=== PATIENT | male | born 1995 | race Caucasian/White ===

== ENCOUNTER 2018-03-01 10:10 | Emergency (ER) | payer OTHER ==
--- NOTE | 2018-03-01 10:20 | EDPHY ---
H & P Stated Complaint: visiting from [place] since here/sats 90% n/v Time Seen by Provider: 03/01/18 10:19 - Personal History Current Tetanus Diphtheria and Acellular Pertussis (TDAP): Yes - Medical/Surgical History Hx Asthma: No Hx Chronic Respiratory Disease: No Hx Diabetes: No Hx Cardiac Disease: No Hx Renal Disease: No Hx Cirrhosis: No Hx Alcoholism: No Hx HIV/AIDS: No Hx Splenectomy or Spleen Trauma: No Other PMH: denies - Social History Smoking Status: Current every day smoker Constitutional: Initial Vital Signs Temperature (C) 36.8 C 03/01/18 10:12 Heart Rate 115 H 03/01/18 10:12 Respiratory Rate 18 03/01/18 10:12 Blood Pressure 150/96 H 03/01/18 10:12 O2 Sat (%) 90 L 03/01/18 10:12 O2 Delivery Mode Room Air O2 (L/minute) 4 Allergies/Adverse Reactions: No Known Allergies Allergy (Unverified 03/01/18 10:11) Home Medications: Medication Instructions Recorded Ibuprofen 03/01/18 Medical Decision Making ED Course/Re-evaluation: CHIEF COMPLAINT: Headache, nausea, vomiting HISTORY OF PRESENT ILLNESS: This patient is a 22 year old male who presents with migraine, nausea, and vomiting. He is currently visiting from [place]. He arrived in [place] on Wednesday , and his headache began then. He then developed associated nausea. Today, he has been unable to keep food or water down. He endorses history of migraines, but has not had one in some time. He denies eating any unusual foods, drinking from unusual water sources, or exposure to ill contacts with similar symptoms. No fever, chest pain, shortness of breath, diarrhea, urinary complaints, or other associated symptoms. REVIEW OF SYSTEMS: A comprehensive 10 system review of systems is otherwise negative aside from elements mentioned in the history of present illness and medical decision making. PHYSICAL EXAM: HR, BP, O2 Sat, RR. Temp noted General Appearance: Alert, well hydrated, appropriate, and non-toxic appearing. Head: Atraumatic without scalp tenderness or obvious injury Eyes: Pupils equal, round, reactive to light and accommodation, EOMI, no trauma , no injection. Ears: Clear bilaterally, no perforation, normal landmarks Nose: Atraumatic, no rhinorrhea, clear. Throat: There is no erythema or exudates, no lesions, normal tonsils, mucus membranes moist. Neck: Supple, 2+ carotid upstroke, nontender, no lymphadenopathy. Respiratory: No retractions, no distress, no wheezes, and no accessory muscle use. Lungs are clear to auscultation bilaterally. Cardiovascular: Regular rate and rhythm, no murmurs, rubs, or gallops. Bilateral carotid, radial, dorsalis pedis, and posterior tibial pulses intact. Good capillary refill all extremities. Gastrointestinal: Abdomen is soft, nontender, non-distended, no masses, no rebound, no guarding, no peritoneal signs. Musculoskeletal: Normal active ROM of all extremities, atraumatic. Neurological: Alert, appropriate, and interactive. The patient has normal DTRs and non-focal cranial nerves, motor, sensory, and cerebellar exam. Skin: No rashes, good turgor, no nodules on palpation. Past medical history: Denies. Past surgical history: Noncontributory Family history: Noncontributory Social history: Visiting from [place]. Single. Employed. Does not abuse tobacco, drugs, or alcohol. DIFFERENTIAL DIAGNOSIS: The differential diagnosis for the patient's headache included but was not limited to altitude sickness, subarachnoid hemorrhage, migraine headache, tension headache and infectious causes such as meningitis, pharyngitis and sinusitis. MEDICAL DECISION MAKIN22 year old male presents with headache, nausea, and vomiting. Exam largely unremarkable. Symptoms likely consistent with altitude sickness as they began upon the patient's arrival here in [place] from [place]. Plan to administer 10mg IV Reglan, 125mg IV Solu-Medrol, 30mg IV Toradol, and !L IV NS for symptom relief. Reassessed. The patient's symptoms are completely relieved following medication administration and he would like to go home now that he feels better. Plan to discharge home in good condition. Follow up and return precautions discussed. He is comfortable with this plan. - Data Points Medications Given: Discontinued Medications Sodium Chloride (Ns) 1,000 mls @ 0 mls/hr IV ONCE ONE; Wide Open PRN Reason: Protocol Stop: 03/01/18 11:07 Last Admin: 03/01/18 11:16 Dose: 1,000 mls Ketorolac Tromethamine (Toradol) 30 mg IVP EDNOW ONE Stop: 03/01/18 10:37 Last Admin: 03/01/18 10:44 Dose: 30 mg Methylprednisolone Sodium Succinate (Solu-Medrol) 125 mg IVP EDNOW ONE Stop: 03/01/18 10:37 Last Admin: 03/01/18 10:44 Dose: 125 mg Metoclopramide HCl (Reglan Injection) 10 mg IVP EDNOW ONE Stop: 03/01/18 10:37 Last Admin: 03/01/18 10:45 Dose: 10 mg Departure - Departure Disposition: Home, Routine, Self-Care Clinical Impression: Effects of high altitude Qualifiers: Encounter type: initial encounter Qualified Code(s): T70.20XA - Unspecified effects of high altitude, initial encounter Migraine Qualifiers: Migraine type: other Status migrainosus presence: without status migrainosus Intractability: not intractable Qualified Code(s): G43.809 - Other migraine, not intractable, without status migrainosus Condition: Good Instructions: Mountain Sickness (ED), Migraine Headache (ED) Additional Instructions: Follow-up with your primary care physician in 2-3 days. You may wish to follow up with neurology when you return to [place] for evaluation of your more chronic migraine symptoms. Return to the emergency department for recurrence of severe headache, nausea, vomiting, numbness, weakness, neck pain, fever or other concerns. Use Excedrin Migraine as directed on the packaging as needed for pain relief. Referrals: TANI MCINTYRE [Other] - As per Instructions Report Scribed for: Scott [address] Report Scribed by: Gavoita Donato Date of Report: 03/01/18 Time of Report: 12:02
[2018-03-01] MEDS ORDERED: KETOROLAC 30 MG/1 ML SDV IVP ONE (10:36)
[2018-03-01] MEDS ORDERED: methylPREDNISolone SOD SUCC 125 MG/2 ML VIAL IVP ONE (10:36)
[2018-03-01] MEDS ORDERED: METOCLOPRAMIDE 10 MG/2 ML VIAL IVP ONE (10:36)
[2018-03-01] MEDS ORDERED: NS 1,000 ML IV ONE (11:06)
[2018-03-01 12:07] VITALS: BP 115/72
== END 2018-03-01 12:08 | disposition home or self-care (01) ==
DX: T70.20XA Unspecified effects of high altitude, initial encounter (principal); G43.809 Other migraine, not intractable, without status migrainosus; F17.200 Nicotine dependence, unspecified, uncomplicated
CPT/HCPCS: 96374; J1885; J2765; J2930